=== PATIENT | male | born 1980 | race Caucasian/White ===

== ENCOUNTER 2020-01-12 17:50 | Observation (INO) | payer OTHER ==
[~2020-01-12] VITALS: Ht 180.3 cm; Wt 75.0 kg
[2020-01-12 18:40] LABS: CLARITY,URINE CLEAR (Clear); COLOR,URINE YELLOW (Yellow); GLUCOSE, URINE NEGATIVE (Neg); KETONES,URINE NEGATIVE (Neg); LEUKOCYTE ESTERASE ,URINE NEGATIVE (Neg); NITRITES, URINE NEGATIVE (Neg); OCCULT BLOOD,URINE NEGATIVE (Neg); PROTEIN,URINE NEGATIVE (Neg); UROBILINOGEN,URINE 0.2 E.U/dL (0.2-1.0)
[2020-01-12 18:41] LABS: UA COLLECTION TYPE CLN CATCH MIDSTREAM
[2020-01-12 18:44] LABS: BASOPHILS # (AUTO) 0.1 X10'3 (0-0.2); BASOPHILS % (AUTO) 0.7 % (0-1); EOSINOPHILS # (AUTO) 0.1 X10'3 (0-0.9); EOSINOPHILS % (AUTO) 1.5 % (0-6); HEMOGLOBIN 14.6 g/dl (14.0-17.9); LYMPHOCYTES # (AUTO) 2.3 X10'3 (1.1-4.8); LYMPHOCYTES % (AUTO) 29.6 % (21-51); MEAN CORPUSCULAR HGB CONC 33.3 g/dL (33.0-36.5); MEAN CORPUSCULAR VOLUME 90.2 FL (78-98); MEAN PLATELET VOLUME 9.4 FL (7.4-10.4); MONOCYTES # (AUTO) 0.4 X10'3 (0-0.9); MONOCYTES % (AUTO) 5.7 % (2-12); NEUTROPHILS # (AUTO) 4.8 X10'3 (1.8-7.7); NEUTROPHILS % (AUTO) 62.5 % (42-75); PLATELET COUNT 176 X10'3 (140-440); RED BLOOD COUNT 4.88 X10'6 (4.70-6.10); RED CELL DISTRIBUTION WIDTH 13.5 % (11.5-14.5); WHITE BLOOD COUNT 7.7 X10'3 (4.5-11.0)
[2020-01-12 18:57] LABS: ALANINE AMINOTRANSFERASE 26 U/L (12-78); ALKALINE PHOSPHATASE 44 IU/L (46-116); ANION GAP 9 (8-16); ASPARTATE AMINO TRANSFERASE 20 U/L (10-37); BILIRUBIN,TOTAL 0.5 MG/DL (0.1-1.0); CALCIUM 9.2 MG/DL (8.5-10.1); CHLORIDE 102 MMOL/L (99-107); CREATININE 1.17 MG/DL (0.60-1.10); GLUCOSE 90 MG/DL (70-104); POTASSIUM 3.6 MMOL/L (3.5-5.1); SODIUM 139 MMOL/L (135-145); TOTAL CARBON DIOXIDE 27.9 MMOL/L (24-32); TOTAL PROTEIN 7.8 G/DL (6.4-8.2); eGFR 70 ML/MIN
[2020-01-12 19:14] LABS: ALBUMIN 4.5 G/DL (3.4-5.0); ALBUMIN/GLOBULIN RATIO 1.4 (1.1-1.5); BLOOD UREA NITROGEN 17 MG/DL (7-18); BUN/CREATININE RATIO 14.5 (5.4-32.0); LIPASE 116 U/L (73-393)
[2020-01-12] MEDS ORDERED: NO HOME MEDS (20:42)
[2020-01-12] MEDS ORDERED: magnesium 2GM in 50ml NS 50 ML IV PRN (21:05)
[2020-01-12] MEDS ORDERED: potassium Cl 20 mEq SR tablet PO PRN ×2 (21:05)
[2020-01-12] MEDS ORDERED: magnesium Cl slow-release 64mg tablet PO PRN (21:05)
[2020-01-12] MEDS ORDERED: magnesium 4gm in 100ml NS 100 ML IV PRN (21:05)
[2020-01-12] MEDS ORDERED: acetaminophen 650mg rectal suppository RC PRN (21:05)
[2020-01-12] MEDS ORDERED: potassium CL 10mEq/100ml bag 100 ML IV PRN ×2 (21:05)
[2020-01-12] MEDS ORDERED: morphine 2 MG/ML inj. syringe IV PRN ×2 (21:05)
[2020-01-12] MEDS ORDERED: bisacodyl 10mg suppository rectal RC PRN (21:05)
--- NOTE | 2020-01-12 21:55 | NUR ---
Received report from BENJI Abarca. Patient transported by [employer] in a wheelchair. He walked to chair to bed. He is ALOx4, he was in no apparent distress. RLQ tender to touch. Patient states; "There is slight pressure and I feel a little bloated". Patient had a cell phone and hiv counselor with him. He was wearing sock, shoes, and shorts. He also had a back pack with his shirt and water bottle, and I pad.
[2020-01-12] MEDS: normal saline 1000ml 1,000 ML IV SCH (22:23)
[2020-01-12] MEDS: levoFLOXACIN-Levaquin 500mg/D5 100 ML IV SCH (22:24)
[2020-01-12 23:35] VITALS: BP 105/65
[2020-01-13] VITALS (18 sets, daily range): BP systolic 94–111; BP diastolic 50–64
[2020-01-13] MEDS: ceFOXitin inj 1,000 MG in normal saline 100ml IV soln 100 ML IV SCH ×3 (00:10→17:20)
[2020-01-13] MEDS: metroNIDAZOLE-Flagyl 500mg/NS 100 ML IV SCH ×4 (00:50→23:55)
[2020-01-13] MEDS: normal saline 1000ml 1,000 ML IV SCH ×3 (03:53→16:53)
[2020-01-13 05:42] LABS: BASOPHILS % (AUTO) 0.9 % (0-1); EOSINOPHILS # (AUTO) 0.1 X10'3 (0-0.9); EOSINOPHILS % (AUTO) 1.8 % (0-6); HEMATOCRIT 39.4 % (42.0-52.0); HEMOGLOBIN 13.4 g/dl (14.0-17.9); LYMPHOCYTES # (AUTO) 1.7 X10'3 (1.1-4.8); LYMPHOCYTES % (AUTO) 35.8 % (21-51); MEAN CORPUSCULAR HEMOGLOBIN 30.4 PG (27.0-31.0); MEAN CORPUSCULAR HGB CONC 33.9 g/dL (33.0-36.5); MEAN CORPUSCULAR VOLUME 89.6 FL (78-98); MEAN PLATELET VOLUME 9.5 FL (7.4-10.4); MONOCYTES # (AUTO) 0.4 X10'3 (0-0.9); MONOCYTES % (AUTO) 8.3 % (2-12); NEUTROPHILS # (AUTO) 2.5 X10'3 (1.8-7.7); NEUTROPHILS % (AUTO) 53.2 % (42-75); PLATELET COUNT 157 X10'3 (140-440); RED CELL DISTRIBUTION WIDTH 13.4 % (11.5-14.5); WHITE BLOOD COUNT 4.8 X10'3 (4.5-11.0)
--- NOTE | 2020-01-13 06:07 | NUR ---
[facility] assessments, and report he gave to the oncoming shift. Addendum: 01/13/20 at 0621 by Evan Dasilva RN Report was given to GARO Addendum: 01/13/20 at 0622 by Evan Dasilva RN Report given to BENJI Vasquez
[2020-01-13 06:09] LABS: ALANINE AMINOTRANSFERASE 26 U/L (12-78); ALBUMIN 3.6 G/DL (3.4-5.0); ALBUMIN/GLOBULIN RATIO 1.2 (1.1-1.5); ALKALINE PHOSPHATASE 35 IU/L (46-116); ANION GAP 7 (8-16); ASPARTATE AMINO TRANSFERASE 17 U/L (10-37); BILIRUBIN,TOTAL 0.8 MG/DL (0.1-1.0); BLOOD UREA NITROGEN 12 MG/DL (7-18); BUN/CREATININE RATIO 10.9 (5.4-32.0); CALCIUM 8.5 MG/DL (8.5-10.1); CHLORIDE 104 MMOL/L (99-107); GLUCOSE 90 MG/DL (70-104); MAGNESIUM 2.1 MG/DL (1.5-2.4); POTASSIUM 3.7 MMOL/L (3.5-5.1); SODIUM 139 MMOL/L (135-145); TOTAL CARBON DIOXIDE 27.8 MMOL/L (24-32); TOTAL PROTEIN 6.5 G/DL (6.4-8.2); eGFR 75 ML/MIN
--- NOTE | 2020-01-13 06:19 | NUR ---
Problems reprioritized. Patient report given, questions answered & plan of care reviewed with Christina LEBLANC.
[2020-01-13] MEDS: K and/or MAG REPLACEMENT MC SCH ×2 (08:00→20:00)
[2020-01-13] MEDS ORDERED: ondansetron/PF 4mg/2ml inj IV PRN ×2 (10:45→13:50)
[2020-01-13] MEDS ORDERED: morphine 2 MG/ML inj. syringe IV PRN ×4 (10:45→15:55)
[2020-01-13] MEDS ORDERED: morphine 4 MG/ML inj SYRINge IV PRN (10:45)
[2020-01-13] MEDS ORDERED: ringers solution, lacted 1,000 ML IV SCH (10:45)
[2020-01-13] MEDS ORDERED: proCHLORperazine 10 MG/2 ml inj IV PRN (10:45)
[2020-01-13] MEDS ORDERED: meperidine/PF 25mg/ml syringe IV PRN ×3 (10:45)
[2020-01-13] MEDS ORDERED: BUPIVAcaine/PF 2.5 mg/ml (0.25%) 30ml vial ONE (11:02)
[2020-01-13] MEDS: levoFLOXACIN-Levaquin 500mg/D5 100 ML IV SCH (11:30)
[2020-01-13] MEDS ORDERED: midazolam 2 mg/2 ml injection ONE (11:41)
[2020-01-13] MEDS ORDERED: fentaNYL/PF 50MCG/1 ML 2ML syringe ONE (11:41)
[2020-01-13] MEDS ORDERED: LIDOcaine 2% (20mg/ml) 5ml vial ONE (11:42)
[2020-01-13] MEDS ORDERED: meperidine/PF 25mg/ml syringe ONE (11:42)
[2020-01-13] MEDS ORDERED: propofol inj 20 ML IV ONE (11:42)
[2020-01-13] MEDS ORDERED: sevoflurane 250ml liquid IH ONE (12:00)
[2020-01-13] MEDS ORDERED: dexamethasone sod phosphate 10mg/ml inj ONE (12:00)
[2020-01-13] MEDS ORDERED: levoFLOXACIN/D5W 500mg/100ml bag IV ONE (12:00)
[2020-01-13] MEDS ORDERED: neostigmine methylsulfate 1 MG/ML 10ml vial ONE (12:00)
[2020-01-13] MEDS ORDERED: rocuronium 10mg/ml inj IV ONE (12:00)
[2020-01-13] MEDS ORDERED: glycopyrrolate 0.2mg/ml inj ONE (12:00)
[2020-01-13] MEDS ORDERED: ondansetron/PF 4mg/2ml inj ONE (13:15)
[2020-01-13] MEDS ORDERED: acetaminophen 1,000mg/100ml IV 100 ML IV ONE (13:31)
[2020-01-13] MEDS ORDERED: ketorolac trometh. 30mg/ml inj. ONE (13:31)
[2020-01-13] MEDS ORDERED: ketorolac trometh. 30mg/ml inj. IV PRN (13:50)
[2020-01-13] MEDS ORDERED: HYDROcodone/acetaminophen 10/325mg tab PO PRN (13:50)
--- NOTE | 2020-01-13 13:57 | NUR ---
ARRIVED IN PACU ASLEEP. O2 ON. REPORT RECEIVED. AIRWAY OBSTRUCTION NOTED, ORAL AIRWAY PLACED BY DR ALVAREZ. AFTER AIRWAY PLACED PT STILL NEEDED CHIN TILT FOR MAINTENANCE OF AIRWAY. PT UNRESPONSIVE. VS STABLE
--- NOTE | 2020-01-13 14:10 | NUR ---
PT AWAKENED AND SPIT OUT ORAL AIRWAY. RESP EASY.VS STABLE
[2020-01-13] MEDS: ondansetron/PF 4mg/2ml inj IV PRN (14:25)
--- NOTE | 2020-01-13 14:57 | NUR ---
STILL NAUSEATED, AND RETCHING AT TIMES. ABD SOFT AND NON-DISTENDED, BANDADES DRY AND INTACT. VS STABLE TO ROOM 349. NURSE IN ROOM TO ACCEPT PT
--- NOTE | 2020-01-13 15:06 | NUR ---
Patient just arrived to his new room from PACU accompanied by Aniya LEBLANC. Patient has 2 lap sites bandages clean, dry, and intact. Patient appears sleepy at this time but will open eyes when I talk to him. Patient received Zofran IV and Compazine IV at PACU not too long ago. Chito LEBLANC from [facility] came by to drop off patient's belongings to the room.
--- NOTE | 2020-01-13 15:06 | NUR ---
gave report to Maye LEBLANC on surgical
[2020-01-13] MEDS ORDERED: metoclopramide 5 mg/ml inj IV PRN (15:55)
--- NOTE | 2020-01-13 18:36 | NUR ---
Problems reprioritized. Patient report given, questions answered & plan of care reviewed with Prudence RN.
--- NOTE | 2020-01-13 18:49 | NUR ---
Patient in room [facility]. I have received report from SANTIAGO LEBLANC and had the opportunity to ask questions and assume patient care.
[2020-01-14] VITALS: BP 103/58
[2020-01-14] MEDS: ceFOXitin inj 1,000 MG in normal saline 100ml IV soln 100 ML IV SCH ×2 (01:31→09:30)
[2020-01-14 04:00] VITALS: BP 91/50
--- NOTE | 2020-01-14 06:20 | NUR ---
Problems reprioritized. Patient report given, questions answered & plan of care reviewed with Sylvie LEBLANC.
[2020-01-14] MEDS: normal saline 1000ml 1,000 ML IV SCH ×3 (06:33→13:13)
--- NOTE | 2020-01-14 06:48 | NUR ---
Patient in room [facility]. I have received report from BEJNI Marquez and had the opportunity to ask questions and assume patient care.
[2020-01-14] MEDS: metroNIDAZOLE-Flagyl 500mg/NS 100 ML IV SCH (07:13)
[2020-01-14] MEDS: K and/or MAG REPLACEMENT MC SCH (08:00)
[2020-01-14] MEDS: levoFLOXACIN-Levaquin 500mg/D5 100 ML IV SCH (08:22)
[2020-01-14 08:41] VITALS: BP 91/47
[2020-01-14 08:54] VITALS: BP 97/60
[2020-01-14] MEDS: ondansetron/PF 4mg/2ml inj IV PRN (09:27)
[2020-01-14 11:00] VITALS: BP 112/64
--- NOTE | 2020-01-14 11:27 | NUR ---
Problems reprioritized. Patient report given, questions answered & plan of care reviewed with Kay Patino.
--- NOTE | 2020-01-14 11:45 | NUR ---
Patient in room [facility]. I have received report from BENJI Mercer and had the opportunity to ask questions and assume patient care.
--- NOTE | 2020-01-14 16:33 | NUR ---
Patient discharged home via family and taken from unit via wheelchair with x1 staff. Patient alert, oriented and in no apparent distress at time of discharge. PIV removed with cannula intact. All belongings left with patient including discharge instructions which were discussed with patient. Patient stated an understanding. Patient took prescription for pain medication with him and a copy was placed in the chart.
== END 2020-01-14 16:19 | disposition home or self-care (01) ==
LOC: ER 17:51 → ED HOLD 21:03 → ORTHO 4S 21:59 → SUR 3N 01-13 14:57
PROVIDERS: ADMIT Family Medicine; ATTEND Family Medicine
PROC: 0DTJ4ZZ Resection of Appendix, Percutaneous Endoscopic Approach (ICD-10-PCS; principal; 2020-01-12)
DX: K35.80 Unspecified acute appendicitis (principal); D64.9 Anemia, unspecified; N17.9 Acute kidney failure, unspecified; Z87.891 Personal history of nicotine dependence; Z88.0 Allergy status to penicillin; R10.31 Right lower quadrant pain
CPT/HCPCS: 36415; 44970; 74176; 80053; 81003; 82948; 83690; 83735; 85025; 86140; 87081; 96361; 96365; 96366; 96367; 96368; 96375; 96376; 99284; G0378; J0131; J0694; J0780; J1100; J1885; J1956; J2001; J2175; J2250; J2270; J2405; J2704; J2710; J2765; J3010; J3490; J7030; A4215; A4618